=== PATIENT | male | born 1940 | race Caucasian/White ===

== ENCOUNTER 2021-03-02 09:14 | Outpatient (REF) | payer MEDICARE, OTHER, SELFPAY ==
--- NOTE | 2021-03-02 11:32 | MHC.AU.AHA ---
Adult Audiological Evaluation Date of Visit: 03/02/21 Reason for Appointment: History of asymmetrical hearing loss (right ear worse). Patient suspects he has had a change in hearing in his right ear. Previous Hearing Test Results: At this clinic on 01/01/2019 Right: Mild to severe sensorineural hearing loss Left: Normal to severe sensorineural hearing loss Ear History: Ear Deformity: None Reported Recent Ear Drainage: None Reported Recent Ear Pain: None Reported Recent Ear Infections: None Reported Medical History: Medical History: High Blood Pressure Hearing Instrument History- Right Ear: Manager Of Housekeeping: Datappraise Model: IDEA SPHEREo [id number]-Bpbv Serial Number: [id number] Battery Size: 10 Repair Warranty: 10/16/2019 Loss and Damage Warranty: Used on 05/21/2018 Dispensed By: [facility] Date of Fittin09/25/2016 Otoscopy: Right Ear: Completely occluded w/cerumen. Cerumen removed prior to testing. Left Ear: Unremarkable Tympanometry: Tympanometry performed due to: To assess integrity of the middle ear system Right Ear: Reduced Middle Ear Compliance (Type As) Left Ear: Reduced Middle Ear Compliance (Type As) Hearing Evaluation: Transducer(s) Used: Insert Earphones Method: Conventional Audiometry Stimuli Used: Pure Tones Right Ear: Description of Hearing: Mild sloping to severe sensorineural hearing loss Left Ear: Description of Hearing: Normal sloping to severe sensorineural hearing loss Speech Recognition Threshold (SRT): Method Used: Recorded Lists Stimuli Used: Spondee Words Right Ear: 55 dBHL Left Ear: 20 dBHL Word Discrimination: Method: Recorded Lists Word Lists Used: NU-6 Right Ear: 68% at 80 dBHL Left Ear: 88% at 70 dBHL Most Comfortable Level (MCL): Right Ear: 80 dBHL Left Ear: 70 dBHL Comparison: Compared to most recent evaluation: Decrease noted at 2000 Hz in the left ear; otherwise, hearing is overall stable. Recommendations: Audiological re-evaluation in one year. Patient's dog recently ate his hearing aid, and he would like to purchase a new one. See hearing aid evaluation report for more details. Diagnosis: Primary Diagnosis: H90.3 Bilateral Sensorineural Hearing Loss Services Performed: Comprehensive Audiological Evaluation (CPT 44085), Tympanometry (CPT 10490) Signature: Provider: Avinash Johns, [facility]
== END 2021-03-02 09:15 | disposition home or self-care (01) ==
LOC: HO.SH 09:14
PROVIDERS: PCP Internal Medicine; Visit Provider Physician Assistant Medical
DX: H90.3 Sensorineural hearing loss, bilateral (principal)
CPT/HCPCS: 92557; 92567

== ENCOUNTER 2021-03-02 10:37 | Outpatient (REF) | payer SELFPAY ==
--- NOTE | 2021-03-02 11:16 | MHC.AU.HAS ---
Hearing Aid Evaluation Date of Visit: 03/02/21 Historical Information: Description of Hearing: Right: Mild to severe sensorineural hearing loss Left: Normal to severe sensorineural hearing loss Current personal amplification information, if applicable: Right-sided Phonak Virto L98-Peew, obtained 09/25/2016 Summary: Patient was seen today for audiological re-evaluation (see separate report for details). He reports that his dog recently ate his hearing aid. The loss and damage warranty on 10/16/2019. Patient would like the new hearing aid to be similar to his previous hearing aid. Hearing Aid Prescription: Based on the individual?s shared listening needs, communication environments, dexterity, desire for connectivity, and personal preferences, the following prescription for amplification has been made: Right ear: Gun Barrel Finisher: Phonak Model: Virto M70-10 Battery Size: 10 Color: [place] Faceplate, Red Transparent Shell Traveling Sales Executive: Power Action Taken/Action Needed: Earmold Impression Taken Hearing Instrument Fitting to be scheduled when materials arrive Paid $350 deposit Primary Diagnosis: H90.3 Bilateral Sensorineural Hearing Loss Signature: Provider: Avinash Johns, CCC-A
--- NOTE | 2021-03-02 11:17 | MHC.AU.MED ---
Medical Clearance for Hearing Instrumentation Date: 03/02/21 Patient Name: Javier Ruvalcaba Date of : 1940 Referring Provider: Shivam Starr MD We have seen your patient on 03/02/21 and have determined that they are a candidate for amplification (See accompanying report). Specifically, they would benefit from: Hearing aid use in the right ear There is a statute that addresses Medical Evaluation Requirements prior to fitting a patient with a hearing aid. According to [place] statute 265 CMR:6.03(1), (a) General. Except as provided in 265 CMR 6.03(1)(b), a financial planning adviser shall not sell a hearing aid unless the prospective user has presented to the financial planning adviser a written statement signed by a licensed physician that states that the patient's hearing loss has been medically evaluated and the patient may be considered a candidate for a hearing aid. The medical evaluation must have taken place within the preceding six months. Please note: Due to the [place] Statute referenced above, we cannot accept a signature other than that of a licensed physician. FOOT ORTHOPEDIST and PA signatures cannot be accepted. I am in agreement with the above recommendation. There is no medical contraindication for hearing instrumentation. Physician Signature Date Physician Name (Printed)
== END 2021-03-02 10:38 | disposition home or self-care (01) ==
LOC: HO.HAP 10:37
PROVIDERS: Visit Provider Internal Medicine Endocrinology, Diabetes & Metabolism
DX: Z46.1 Encounter for fitting and adjustment of hearing aid (principal); H90.3 Sensorineural hearing loss, bilateral
CPT/HCPCS: 92591

== ENCOUNTER 2021-03-23 12:42 | Outpatient (REF) | payer OTHER, SELFPAY ==
--- NOTE | 2021-03-23 15:18 | MHC.AU.HAR ---
Hearing Instrument Fitting- Adult- Right Ear Date of Visit: 03/23/21 Hearing Instrument(s) Dispensed: Right Ear: Oven Builder: Phonak Model: Alcyone Lifescienceso M70-10 Tianji Serial Number: [id number] Repair Warranty: 04/11/2024 Loss and Damage Warranty: 04/11/2024 Service Plan: 04/11/2024 Battery Size: 10 Color: [place] Faceplate, Red Transparent Shell Onion Topper: Power Type of Wax Guard: CeruStop Summary of Fitting: Feedback manager public was run. Verifit performed and levels adjusted to better reach targets. Fit of instrument is good. Target gain is at 100%. Patient was pleased with the sound of the instrument and did not feel additional adjustments were necessary. Recommendations: Recommendations: Patient is an experienced hearing aid user and will call if follow-up is needed. Paid $1750 balance. Diagnosis Code(s): Primary Diagnosis: H90.3 Bilateral Sensorineural Hearing Loss Secondary Diagnosis: Signature: Provider: Avinash Johns, CCC-A
== END 2021-03-23 12:43 | disposition home or self-care (01) ==
LOC: HO.HAP 12:42
PROVIDERS: Visit Provider Internal Medicine
DX: Z46.1 Encounter for fitting and adjustment of hearing aid (principal); H90.3 Sensorineural hearing loss, bilateral
CPT/HCPCS: V5255

== ENCOUNTER 2021-04-30 13:29 | Outpatient (REF) | payer SELFPAY | END 2021-04-30 13:30 | disposition home or self-care (01) | LOC: HO.HAP 13:29 | PROVIDERS: Visit Provider Internal Medicine | DX: Z13.89 Encounter for screening for other disorder (principal) ==

== ENCOUNTER 2022-11-25 14:36 | Outpatient (REF) | payer SELFPAY ==
--- NOTE | 2022-11-25 15:19 | MHC.AU.HA3 ---
Hearing Instrument Follow-Up- Binaural Date of Visit: 11/25/22 Right Ear: Make, Model, Color, Serial Number: Juliana Ramirez M70-10 [facility], #[id number] Knocker Off Repair Warranty: 04/11/2024 Knocker Off Loss and Damage Warranty: 04/11/2024 [facility] Service Plan: 04/11/2024 Battery Size: 10 Type of Wax Guard: CeruStop Dispensed By: [facility] Date of Fittin03/23/2021 Follow-Up Summary: Patient dropped off his right hearing aid, reporting the removal string had fallen off and the hearing aid is whistling. Called patient to discuss- he says the whistling started a few weeks ago. He recently used Debrox in his ears, but it does not seem better. The hearing aid was sent for repair to replace the removal string and clean/test. He will need an appointment when it returns to further troubleshoot the feedback. Diagnosis Code(s): Primary Diagnosis: H90.3 Bilateral Sensorineural Hearing Loss Signature: Provider: Autumn Johns, [facility]
== END 2022-11-25 14:37 | disposition home or self-care (01) ==
LOC: HO.HAP 14:36
PROVIDERS: Visit Provider Internal Medicine
DX: Z13.89 Encounter for screening for other disorder (principal)

== ENCOUNTER 2022-12-10 09:56 | Outpatient (REF) | payer SELFPAY ==
--- NOTE | 2022-12-10 11:20 | MHC.AU.FU2 ---
Hearing Instrument Follow-Up Date of Visit: 12/10/22 Right Ear: Make, Model, Color, Serial Number: Juliana Ramirez M70-[address] [facility], #[id number] [employer] Hand's Repair Warranty: 06/10/2024 [employer] Loss and Damage Warranty: 04/11/2024 [facility] Service Plan: 04/11/2024 Battery Size: 10 Lithography Contact Worker/Slim Tube: Power Type of Earmold/Dome/CShell/SlimTip: Type of Wax Guard: CeruStop Dispensed By: [facility] Date of Fittin03/23/2021 Follow-Up Summary: Fit the repaired right hearing aid and set to most recent settings in [facility]. When patient inserted the aid, the volume control did not work. Verified settings in [facility] and volume control and indicator was activated. Listening check confirmed the volume control was not working. Replaced with a different volume control in stock. After closing the battery door, I had to wait approximately 10 seconds for the volume control button to work. Performed opening and closing door several time waiting at least 5 seconds and the volume change would work. It did not work when pushed immediately after startup chimes heard. Explained this to patient and he practiced as well with volume control working in office now. Otoscopy indicates mostly occluding cerumen in the right ear which would contribute to the feedback heard prior to aid being sent out. Patient will use Ear Wax MD drops. Advise cerumen removal if feedback continues. Diagnosis Code(s):Primary Diagnosis: H90.3 Bilateral Sensorineural Hearing Loss Signature:Provider: Autumn Kovacs, [facility]
== END 2022-12-10 09:57 | disposition home or self-care (01) ==
LOC: HO.HAP 09:56
PROVIDERS: Visit Provider Internal Medicine
DX: Z13.89 Encounter for screening for other disorder (principal)

== ENCOUNTER 2023-08-19 12:45 | Outpatient (REF) | payer SELFPAY | END 2023-08-19 12:46 | disposition home or self-care (01) | LOC: HO.HAP 12:45 | PROVIDERS: Visit Provider Internal Medicine | DX: Z13.89 Encounter for screening for other disorder (principal) ==

== ENCOUNTER 2023-08-20 13:43 | Outpatient (REF) | payer SELFPAY | END 2023-08-20 13:44 | disposition home or self-care (01) | LOC: HO.HAP 13:43 | PROVIDERS: Visit Provider Internal Medicine | DX: Z13.89 Encounter for screening for other disorder (principal) ==